=== PATIENT | female | born 1960 | race Caucasian/White ===

== ENCOUNTER 2023-01-03 09:07 | Observation (INO) ==
[2023-01-03] MEDS ORDERED: FENTANYL VIAL INJ 100 mcg ONE (09:25)
[2023-01-03] MEDS ORDERED: VERSED ONE (09:25)
[2023-01-03] MEDS ORDERED: KETAMINE 50 MG/5 ML-NACL SYRNG ONE (09:25)
[2023-01-03] MEDS ORDERED: PEPCID 20 MG VIAL ONE (09:26)
[2023-01-03] MEDS ORDERED: ZOFRAN INJ 4 MG VIAL ONE ×2 (09:26→17:28)
[2023-01-03] MEDS ORDERED: DIPRIVAN VIAL 20 ML ONE (09:26)
[2023-01-03] MEDS ORDERED: CLEOCIN 600 MG IV PREMIX 600 MG/50 ML BAG IV ONE (09:33)
[2023-01-03] MEDS ORDERED: LR 1,000 ML IV 1,000 ML IV ONE (09:33)
[2023-01-03] MEDS ORDERED: DUONEB 0.5 MG/3 MG (3 mL) NEB ONE (09:42)
[2023-01-03] MEDS ORDERED: ULTANE GAS IN ONE (09:52)
[2023-01-03] MEDS ORDERED: XYLOCAINE 2 % (PLAIN) ONE (09:52)
[2023-01-03] MEDS ORDERED: PRECEDEX INJ VIAL IVP ONE (09:52)
[2023-01-03 09:59] VITALS: BMI 27.1
[2023-01-03] MEDS ORDERED: ROBINUL ONE (09:59)
[2023-01-03] MEDS ORDERED: EPHEDRINE SULFATE INJ ONE (10:17)
[2023-01-03] MEDS ORDERED: OFIRMEV IV 1000 MG VIAL 1,000 MG/100 ML VIAL IV ONE (10:19)
[2023-01-03] MEDS ORDERED: DECADRON INJ ONE (10:29)
[2023-01-03] MEDS ORDERED: MARCAINE 0.25% INJ ONE (10:31)
[2023-01-03] MEDS ORDERED: NORCO 10/325 TAB PO PRN (10:52)
[2023-01-03] MEDS ORDERED: TYLENOL 325 MG TAB PO PRN (10:52)
[2023-01-03] MEDS ORDERED: BENADRYL INJ 50 MG VIAL IVP PRN (11:09)
[2023-01-03] MEDS ORDERED: BARHEMSYS INJ IVP PRN (11:09)
[2023-01-03] MEDS ORDERED: DILAUDID INJ ONE (11:13)
[2023-01-03] MEDS: DILAUDID INJ IVP PRN ×3 (11:17→23:48)
[2023-01-03] MEDS: ZOFRAN INJ 4 MG VIAL IVP PRN ×2 (13:50→17:37)
[2023-01-03] MEDS ORDERED: ANCEF VIAL 1 GRAM IVP SCH (14:00)
[2023-01-03] MEDS ORDERED: COLACE CAP 100 MG PO SCH (21:00)
[2023-01-04] MEDS: DILAUDID INJ IVP PRN (04:18)
[2023-01-04 06:54] LABS: BASOPHILS % (AUTO) 0.3 % (0.2-1.0); EOSINOPHILS % (AUTO) 0.2 % (0.9-2.9); HEMATOCRIT 38.4 % (36.0-47.0); HEMOGLOBIN 12.8 g/dL (12.0-16.0); LYMPHOCYTES # (AUTO) 1.3 X10^3/uL (1.3-2.9); MEAN CORPUSCULAR HGB CONC 33.4 g/dL (33.0-35.0); MEAN CORPUSCULAR VOLUME 92.8 fL (80.0-100.0); MEAN PLATELET VOLUME 8.4 fL (7.4-11.0); MONOCYTES # (AUTO) 0.8 x10^3/uL (0.3-0.8); MONOCYTES % (AUTO) 7.6 % (0.0-13.0); NEUTROPHILS # (AUTO) 8.4 x10^3/uL (2.2-4.8); NEUTROPHILS % (AUTO) 79.9 % (42.0-75.0); PLATELET COUNT 275 X10^3/uL (150.0-450.0); RED BLOOD COUNT 4.14 X10^6/uL (3.5-5.4); RED CELL DISTRIBUTION WIDTH 13.5 % (11.6-16.5); WHITE BLOOD COUNT 10.5 X10^3/uL (3.6-10.0)
[2023-01-04 07:08] LABS: BLOOD UREA NITROGEN 9 mg/dL (7-18); CALCIUM 8.8 mg/dL (8.5-10.1); CHLORIDE 101 mmol/L (98-107); CREATININE 0.71 mg/dL (0.55-1.02); GLUCOSE 100 mg/dL (65-99); POTASSIUM 3.5 mmol/L (3.5-5.1); SODIUM 137 mmol/L (136-145); eGFR NON BLACK RACES > 60 (>60)
[2023-01-04] MEDS ORDERED: LOVENOX INJ 40 MG SYR SC ONE (07:42)
--- NOTE | 2023-01-04 08:23 | NOTE.SOAP ---
Soap Note Note for Day of Date of Exam: 01/04/23 Subjective Data Subjective Data: Patient is POD1 s/p Left ankle closed reduction with application of external fixator. She is doing well this am, states that pain is controlled and denies any acute symptoms overnight. She states that she is ready to go home. It is hard as her suffered from a stroke a few years ago and she is his primary caregiver. Her sister will be coming to town to help support her through this time. Objective Data Objective Data: Dressings c/d/i without strikethrough, skin wrinkling noted- decreased edema Neurovascular status intact Patient able to move toes Assessment Assessment: S/P Closed reduction with application of external fixator, left ankle - Trimalleolar fracture, left Plan Plan: Patient seen bedside, doing well. Explained the postoperative process. She will likely need a second surgery for internal fixation in the future once her fracture blisters heal. She is to remain NWB to the LLE with assistive device. She has a wheelchair at home and I wrote her script for bedside commode. Mccracken for pain, ASA 325 BID for DVT ppx. Scripts are in chart- please make sure patient has scripts before discharge, discussed with charge nurse. She is okay to go home from a podiatry standpoint
[2023-01-04] MEDS ORDERED: LOVENOX INJ 40 MG SYR SC SCH (09:00)
[2023-01-04 10:40] VITALS: BP 137/71; PULSE 74; RESP 18; TEMP 98.2; O2SAT 98
--- NOTE | 2023-01-04 11:25 | DR.SSS ---
SHORT STAY SUMMARY Admission Date Date of Admission: 01/03/23 Discharge Date Discharge Date: 01/04/23 Admission Diagnoses Admission Diagnoses: Left ankle closed reduction with application of external fixator. Discharge Diagnoses Discharge Diagnoses: Left ankle closed reduction with application of external fixator. Chief Complaint Chief Complaint: Left ankle pain History of Present Illness History of Present Illness: Pt is a 62 year old female admitted for observation status post Left ankle closed reduction with application of external fixator. She is POD#1 and on examination is doing well. Podiatry is following and cindy ahn seen her at bedside and explained the postoperative process. Pt has been instructed to remain NWB to the LLE with assistive device. She has a wheelchair at home and she received a script for bedside commode. Labs: Wbc 10.5, Hgb 12.8, Plt 275, Na 137, K 3.5, Creatinine 0.71, Glucose 100. She is otherwise medically stable to be discharged. Instructed to follow up with podiatry. Past Medical History Past Medical History: Hypertension Past Surgical History Surgical History: Cholecystectomy Allergies Allergies Allergy/AdvReac Type Severity Reaction Status Date / Time Penicillins Allergy Verified 01/03/23 12:36 prochlorperazine Allergy Verified 01/03/23 12:36 [From Compazine] Medications Home Medications: Penicillins Allergy (Verified 01/03/23 12:36) prochlorperazine [From Compazine] Allergy (Verified 01/03/23 12:36) CONTINUE taking the following medications tramadol 50 mg tablet 50 mg PO Q6H PRN pain 01/03/23 [History] New Prescriptions aspirin 325 mg capsule 325 mg PO BID #60 caps 01/04/23 [Rx] hydrocodone 5 mg-acetaminophen 325 mg tablet 1 tab PO Q4H PRN #36 tabs 01/04/23 [Rx] Family History Family Medical History: Diabetes Mellitus and Hypertension Social History Does patient currently use any type of tobacco product: Yes Have you used tobacco products in the last 12 months: Yes Type of Tobacco Use: Cigarettes How many years tobacco product used: 18 Does any household member use tobacco: No Alcohol Use: None Drug Use: None Review of Systems Constitutional: No Symptoms Reported Eyes: No Symptoms Reported ENT: No Symptoms Reported Respiratory: No Symptoms Reported Cardiovascular: No Symptoms Reported Gastrointestinal: No Symptoms Reported Musculoskeletal: Foot Pain Skin: No Symptoms Reported Neurological: No Symptoms Reported Physical Exam Vital Signs: Last Vital Signs Temp 98.2 F 01/04/23 08:00 Pulse 74 01/04/23 08:00 Resp 18 01/04/23 08:00 BP 137/71 01/04/23 08:00 Pulse Ox 98 01/04/23 08:00 O2 Del Method Room Air 01/04/23 08:38 FiO2 21 01/04/23 08:38 Oriented: Normal Eyes: Normal Nose: Normal Respiratory: Clear Throughout Cardiovascular: Normal Auscultation: Bowel Sounds: Normal Musculoskeletal: Left and Ankle Psychiatric: Normal Speech Pattern: Clear Labs Labs: Laboratory Last Values WBC 10.5 X10^3/uL (3.6-10.0) H 01/04/23 06:28 RBC 4.14 X10^6/uL (3.5-5.4) 01/04/23 06:28 Hgb 12.8 g/dL (12.0-16.0) 01/04/23 06:28 Hct 38.4 % (36.0-47.0) 01/04/23 06:28 MCV 92.8 fL (80.0-100.0) 01/04/23 06:28 MCH 31.0 pg (27.0-34.0) 01/04/23 06: MCHC 33.4 g/dL (33.0-35.0) 01/04/23 06:28 RDW 13.5 % (11.6-16.5) 01/04/23 06:28 Plt Count 275 X10^3/uL (150.0-450.0) 01/04/23 06:28 MPV 8.4 fL (7.4-11.0) 01/04/23 06:28 Neut % (Auto) 79.9 % (42.0-75.0) H 01/04/23 06: Lymph % (Auto) 12.0 % (21.0-51.0) L 01/04/23 06: [place] % (Auto) 7.6 % (0.0-13.0) 01/04/23 06: Eos % (Auto) 0.2 % (0.9-2.9) L 01/04/23 06: Baso % (Auto) 0.3 % (0.2-1.0) 01/04/23 06:28 Neut # (Auto) 8.4 x10^3/uL (2.2-4.8) H 01/04/23 06:28 Lymph # (Auto) 1.3 X10^3/uL (1.3-2.9) 01/04/23 06:28 [place] # (Auto) 0.8 x10^3/uL (0.3-0.8) 01/04/23 06:28 Eos # (Auto) 0.0 x10^3/uL (0.0-0.2) 01/04/23 06:28 Baso # (Auto) 0.0 X10^3/uL (0.0-0.1) 01/04/23 06:28 Absolute Nucleated RBC 0.0 /100WBC 01/04/23 06:28 Sodium 137 mmol/L (136-145) 01/04/23 06:28 Corrected Sodium TNP 01/04/23 06:28 Potassium 3.5 mmol/L (3.5-5.1) 01/04/23 06:28 Chloride 101 mmol/L (98-107) 01/04/23 06:28 Carbon Dioxide 31.0 mmol/L (21-32) 01/04/23 06:28 BUN 9 mg/dL (7-18) 01/04/23 06:28 Creatinine 0.71 mg/dL (0.55-1.02) 01/04/23 06:28 Est GFR (MDRD) Af Amer > 60 (>60) 01/04/23 06:28 Est GFR (MDRD) Non-Af > 60 (>60) 01/04/23 06:28 Glucose 100 mg/dL (65-99) H 01/04/23 06:28 Calcium 8.8 mg/dL (8.5-10.1) 01/04/23 06:28 Assessment/Plan (1) Fracture, ankle: (2) Closed left ankle fracture: Hospital Course Hospital Course: Pt is a 62 year old female admitted for observation status post Left ankle closed reduction with application of external fixator. She is POD#1 and on examination is doing well. Podiatry is following and they have seen her at bedside and explained the postoperative process. Pt has been instructed to remain NWB to the LLE with assistive device. She has a wheelchair at home and she received a script for bedside commode. Labs: Wbc 10.5, Hgb 12.8, Plt 275, Na 137, K 3.5, Creatinine 0.71, Glucose 100. She is otherwise medically stable to be discharged. Instructed to follow up with podiatry. Discharge Medications Discharge Medications: Home Medication List tramadol 50 mg tablet 50 mg PO Q6H PRN pain 01/03/23 [History] aspirin 325 mg capsule 325 mg PO BID #60 caps 01/04/23 [Rx] hydrocodone 5 mg-acetaminophen 325 mg tablet 1 tab PO Q4H PRN #36 tabs 01/04/23 [Rx] Prescriptions: Christie Payne hydrocodone-acetaminophen Christie Echols Discharge Plan Discharge Plan Patient Disposition: HOME, SELF-CARE Condition: Stable Health Concerns: Post Hospitalization: new medications and changes needed to prevent readmission or further decline. Pt educated and given instructions on all concerns. Plan of Treatment: Continue with present treatment and follow up plan. Pt is to keep follow up appointment as instructed and take medications as ordered. Prescriptions: New aspirin 325 mg Capsule 325 mg PO BID Qty: 60 0RF hydrocodone-acetaminophen 5-325 mg Tablet 1 tab PO Q4H MDD 4 PRNQty: 36 0RF No Action clonidine HCl 0.1 mg tablet 0.1 mg PO BID Qty: 60 0RF hydrocodone-acetaminophen 7.5-325 mg tablet 1 tab PO Q6H MDD 4 TABS PRNQty: 15 0RF tramadol 50 mg tablet 50 mg PO Q6H PRN (Reason: pain) Orders to Discharge Patient Discharge Orders: Discharge (Routine); Ordered 01/04/23 Ordered By: Christie Echols Follow ups/Referrals Follow ups/Referrals: Luis Tyler [CONSULTING PHYSICIAN] - 1 WEEK (01/09/23 at 1330) Sandy Morfin [Primary Care Provider] - 1 WEEK Instructions Instructions: Complex Ankle Fracture Stand Alone Forms: Excuse From Work or School, Post Hospital Follow Up Care
== END 2023-01-04 11:15 | disposition home or self-care (01) ==
LOC: MED/SURG 09:07 → SURG1 09:07
PROVIDERS: ADMIT Family Medicine; ATTEND Obstetrics & Gynecology Obstetrics
PROC: APEXFIX (2023-01-03 10:45)
DX: W18.30XA Fall on same level, unspecified, initial encounter; Y92.9 Unspecified place or not applicable; S93.05XA Dislocation of left ankle joint, initial encounter